=== PATIENT | female | born 1940 | race Two or more races ===

== ENCOUNTER 2016-10-28 00:15 | Emergency (ER) | payer MEDICARE, OTHER ==
[~2016-10-28] VITALS: Ht 157.5 cm; Wt 52.2 kg
[~2016-10-28 00:15] MED LIST: ALBU8.5H2 IH; ALBU8.5H4 IH; BECL8.7A6 IH; ESOM20CA PO
[2016-10-28 01:19] VITALS: BP 158/95
[2016-10-28] MEDS ORDERED: ACETAMINOPHEN 325 MG TABLET PO ONE (02:00)
[2016-10-28] MEDS ORDERED: ACETAMINOPHEN 325 MG TABLET ONE (02:03)
== END 2016-10-28 02:33 | disposition home or self-care (01) ==
LOC: ER 00:18
DX: S50.811A Abrasion of right forearm, initial encounter (principal); W55.03XA Scratched by cat, initial encounter; Y93.89 Activity, other specified; Y92.89 Other specified places as the place of occurrence of the external cause; Y99.9 Unspecified external cause status; I10 Essential (primary) hypertension; J45.909 Unspecified asthma, uncomplicated; Z88.0 Allergy status to penicillin
CPT/HCPCS: 99282; A4606; Z7610